=== PATIENT | male | born 1965 | race Caucasian/White ===

== ENCOUNTER → 2018-01-03 11:01 | Outpatient (CLI) | payer OTHER ==
[2018-01-03 11:15] LABS: BASOPHILS 0.3 % (0-2); EOSINOPHILS 4.8 % (0-7); HEMATOCRIT 40.5 % (42.0-54.0); HEMOGLOBIN 12.6 g/dL (13.5-17.5); IMMATURE GRANULOCYTES 0.3 % (0-5); LYMPHOCYTES 19.1 % (15-50); MCH 23.9 pg (26.0-34.0); MCHC 31.1 g/dL (31.0-37.0); MCV 76.9 fL (80.0-100.0); MEAN PLATELET VOLUME 10.2 fL (7.4-10.4); MONOCYTES 6.1 % (2-11); NEUTROPHILS 69.4 % (40-80); PLATELET COUNT 294 10x3/uL (130-400); RBC 5.27 10x6/uL (4.20-6.10); RDW 16.2 % (11.5-14.5); WBC 8.7 10x3/uL (4.8-10.8)
== END | disposition home or self-care (01) ==
LOC: D.LAB 11:01
PROVIDERS: Internal Medicine Gastroenterology
DX: R19.7 Diarrhea, unspecified (principal); K92.1 Melena; R10.9 Unspecified abdominal pain

== ENCOUNTER → 2018-02-08 14:53 | Outpatient (CLI) | payer OTHER | END | disposition home or self-care (01) | LOC: D.LAB 12:00 | DX: K50.90 Crohn's disease, unspecified, without complications (principal) ==